=== PATIENT | male | born 1960 | race Caucasian/White ===

== ENCOUNTER 2017-07-22 00:19 | Emergency (ER) | payer SELFPAY ==
[2017-07-22 01:04] VITALS: BP 129/73; PULSE 90; RESP 18; TEMP 99.1; O2SAT 100
--- NOTE | 2017-07-22 01:06 | PD ---
HPI Chief Complaint: Psychiatric Symptoms Time Seen by Provider: 01:05 Travel History International Travel<30 days: No Contact w/Intl Traveler<30days: No Traveled to known affect area: No History of Present Illness HPI 56-year-old male presents to the emergency department under [place] [facility] for psychiatric evaluation. Patient was seen and evaluated at another facility and transferred here. His diagnosis is Warneke's encephalopathy. Patient is a poor historian. Does report injecting IV drugs. States that he feels "messed up." Patient sometimes seems to answer my questions appropriately, other times he seems delayed and confused. Reports that he has a right wrist abscess from injecting IV drugs. No other symptoms to report at this times. [facility] Past Medical History Medical History: Unable to Obtain Social History Alcohol Use: Yes Tobacco Use: Yes Substance Use: Yes Allergies-Medications (Allergen,Severity, Reaction): Coded Allergies: No Known Allergies (Unverified , 07/22/17) Review of Systems ROS Limitations: Poor Historian Except as stated in HPI: all other systems reviewed are Neg Physical Exam Exam Limitations: Poor Historian Narrative GENERAL: Well-nourished, well-developed male patient in no acute distress. SKIN: Focused skin assessment warm/dry. There is an indurated area in the right lateral wrist which measures about 2 cm in diameter. It is fluctuant but there is no pointing or drainage. There is a zone of inflammation around it but no lymphangitis. HEAD: Normocephalic. EYES: No scleral icterus. No injection or drainage. NECK: Supple, trachea midline. No JVD or lymphadenopathy. CARDIOVASCULAR: Regular rate and rhythm without murmurs, gallops, or rubs. RESPIRATORY: Breath sounds equal bilaterally. No accessory muscle use. GASTROINTESTINAL: Abdomen soft, non-tender, nondistended. MUSCULOSKELETAL: No cyanosis, or edema. BACK: Nontender without obvious deformity. No CVA tenderness. Data Data Last Documented VS Vital Signs Date Time Temp Pulse Resp B/P (MAP) Pulse Ox O2 Delivery O2 Flow Rate FiO2 07/22/17 01:04 99.1 90 18 129/73 (91) 100 Room Air Orders Orders Wound Culture And Gram Stain (07/22/17 01:16) Psych Screen (07/22/17 01:26) Sulfamet-Trimeth Ds 800-160 Mg (Bactrim (07/22/17 04:30) Cephalexin (Keflex) (07/22/17 04:30) Sulfamet-Trimeth Ds 800-160 Mg (Bactrim (07/22/17 21:00) Cephalexin (Keflex) (07/22/17 21:00) [facility] Medical Decision Making Medical Screen Exam Complete: Yes Emergency Medical Condition: Yes Medical Record Reviewed: Yes Differential Diagnosis Mood disorder versus personality disorder versus adjustment reaction disorder versus substance abuse Narrative Course 56-year-old male presents emergency department as a transfer [place]. His altered mental status was evaluated over the last 2 days at that facility. Patient appears without distress. Vital signs are stable. He does have an abscess on his right lateral wrist that is drained. He is started on oral antibiotics. Patient is medically cleared to undergo psychiatric screening for further evaluation and disposition. Mental health screening discussed with the patient. Psychiatric screen ordered. Procedures Procedure Narrative INCISION AND DRAINAGE OF ABSCESS: The area was prepped and was sterilely draped. Topical ethyl chloride was used to anesthetize the area. The area was properly anesthetized. A number 11 scalpel was used to make a [1-cm incision across the area of the abscess. Cultures were obtained. The abscess was drained an irrigated with normal saline. Sterile dressing applied. Patient advised to have packing removed in two days. Diagnosis Primary Impression: Psychosis Qualified Codes: F29 - Unspecified psychosis not due to a substance or known physiological condition Additional Impressions: Substance abuse Abscess Med/Other Pt SpecificInfo: Prescription(s) given Scripts Cephalexin (Keflex) 500 Mg Capsule 500 MG PO QID for Infection for 5 Days, CAP 0 Refills Prov: Salina Boyer 07/22/17 Sulfamethoxazole-Trimethoprim (Bactrim DS) 800-160 Mg Tab 1 TAB PO BID for Infection, #20 TAB 0 Refills Prov: Salina Boyer 07/22/17 Condition: Stable Salina Boyer Jul 22, 2017 01:06
[2017-07-22] MEDS ORDERED: CEPHALEXIN MONOHYDRATE 500 MG CAP PO ONE ×2 (04:30→21:00)
[2017-07-22] MEDS ORDERED: SULFAMETHOXAZOLE-TRIMETHOPRIM DS 800-160 MG TAB PO ONE ×2 (04:30→21:00)
[2017-07-22] MEDS ORDERED: CEPH-460 PO (06:04)
[2017-07-22] MEDS ORDERED: BACT800T5 PO (06:04)
[2017-07-22 06:20] VITALS: BP 137/73; PULSE 94; RESP 18; TEMP 98.6; O2SAT 99
--- NOTE | 2017-07-22 12:36 | PD.PSY.CON ---
Provisional Diagnosis Admission Date [place] I. Major neurocognitive disorder, severe, without behavioral disturbances [place] II. Deferred History of Present Illness Service Psychiatry Consult Requested By ER Reason for Consult [facility] Primary Care Physician Unknown HPI The patient is a 56-year-old -[place] man, as per EMR information he is domiciled in [place], no known psychiatric or medical history, who presents to the emergency department under [facility] for psychiatric evaluation. Patient was seen and evaluated at another facility and transferred here. His diagnosis is Warneke's encephalopathy. Patient is a poor historian. Does report injecting IV drugs in the past. States that he feels "messed up." Patient sometimes seems to answer my questions appropriately, other times he seems delayed and confused. Reports that he has a right wrist abscess from injecting IV drugs. The patient has severe dementia, is completely disoriented in time and place. He has persistent prominent confabulatory statements in order to answer questions. He denies depression, he denies anxiety, he denies psychosis. He denies suicidal and homicidal ideation, he denies visual and auditory hallucinations. During his stay in the agitation, no aggressive behavior has been reported. He has been mostly calm, cooperative, but completely detached from reality. Review of Systems Constitutional: DENIES: Diaphoretic episodes, Fatigue, Fever, Weight gain, Weight loss, Chills, Dizziness, Change in appetite, Night Sweats Endocrine: DENIES: Heat/cold intolerance, Polydipsia, Polyuria, Polyphagia Eyes: DENIES: Blurred vision, Diplopia, Eye inflammation, Eye pain, Vision loss , Photosensitivity, Double Vision Ears, nose, mouth, throat: DENIES: Tinnitus, Hearing loss, Vertigo, Nasal discharge, Oral lesions, Throat pain, Hoarseness, Ear Pain, Running Nose, Epistaxis, Sinus Pain, Toothache, Odynophagia Respiratory: DENIES: Apneas, Cough, Snoring, Wheezing, Hemoptysis, Sputum production, Shortness of breath Cardiovascular: DENIES: Chest pain, Palpitations, Syncope, Dyspnea on Exertion , PND, Lower Extremity Edema, Orthopnea, Claudication Gastrointestinal: DENIES: Abdominal pain, Black stools, Bloody stools, Constipation, Diarrhea, Nausea, Vomiting, Difficulty Swallowing, Anorexia Genitourinary: DENIES: Sexual dysfunction, Urinary frequency, Urinary incontinence, Urgency, Hematuria, Dysuria, Nocturia, Penile Discharge, Testicular Pain, Testicular Swelling Musculoskeletal: DENIES: Joint pain, Muscle aches, Stiffness, Joint Swelling, Back pain, Neck pain Integumentary: DENIES: Abnormal pigmentation, Nail changes, Pruritus, Rash Hematologic/lymphatic: DENIES: Bruising, Lymphadenopathy Immunologic/allergic: DENIES: Eczema, Urticaria Past Family Social History Coded Allergies: No Known Allergies (Unverified , 07/22/17) Active Scripts Cephalexin (Keflex) 500 Mg Capsule, 500 MG PO QID for Infection for 5 Days, CAP 0 Refills Prov:Salina Boyer 07/22/17 Sulfamethoxazole-Trimethoprim (Bactrim DS) 800-160 Mg Tab, 1 TAB PO BID for Infection, #20 TAB 0 Refills Prov:Salina Boyer 07/22/17 Current Medications Medications (Trade) Dose Ordered Sig/William Route Start Time Stop Time Status Last Admin (Bactrim Ds 800-160 Mg) 1 tab ONCE ONCE PO 07/22/17 21:00 07/22/17 21:01 (Keflex) 500 mg ONCE ONCE PO 07/22/17 21:00 07/22/17 21:01 Physical Exam Vital Signs Vital Signs Date Time Temp Pulse Resp B/P (MAP) Pulse Ox O2 Delivery O2 Flow Rate FiO2 07/22/17 06:20 98.6 94 18 137/73 (94) 99 Room Air Lab Results Date/Time Source Procedure Growth Status 07/22/17 02:07 Wound Arm Gram Stain - Final Resulted 07/22/17 02:07 Wound Arm Wound Culture Pending Resulted Mental Status Examination Appearance: Appropriate Consciousness: Alert Orientation: Person Motor Activity: Abnormal gait Speech: Unremarkable Language: Adequate Fund of Knowledge: Inadequate Attention and Concentration: Adequate Memory: Impaired Mood: Appropriate Affect: Appropriate Thought Process & Associations: Loose associations, Disorganized Thought Content: Bizarre thinking Hallucination Type: None Delusion Type: None Suicidal Ideation: No Suicidal Plan: No Suicidal Intention: No Homicidal Ideation: No Homicidal Plan: No Homicidal Intention: No Insight: Fair Judgment: Impulsive Assessment & Plan Problem List: (1) Dementia without behavioral disturbance ICD Codes: F03.90 - Unspecified dementia without behavioral disturbance Assessment & Plan: Patient is diffusely confused, just oriented to person, disoriented in time and place. Uses persistent confabulation to answer questions. He denies depression, he denies anxiety, he denies edgar and psychosis. He denies suicidal or homicidal ideation, he denies visual and auditory hallucinations. No agitation, no aggressive behavior observed. Patient definitely has severe dementia. Does not have any neuropsychiatric symptoms require psychiatric admission at this moment. Patient does not meet criteria for involuntary psychiatric admission. He will slowly need to be transferred to permanent [facility] housing. He will be transferred back to the hospital he came from. Assessment & Plan Estimated LOS: days Miky Wolff MD Jul 22, 2017 12:36
--- NOTE | 2017-07-22 13:13 | PD ---
Physical Exam Date Seen by Provider: Jul 22, 2017 Time Seen by Provider: 13:11 Narrative 56-year-old male with history of Wernicke syndrome, was transferred here from another hospital for psychiatric evaluation. Patient was medically cleared after I&D of abscess performed secondary to recent IV drug use. Patient was seen by the psychiatrist and felt to be psychiatrically stable and not appropriate for psychiatric evaluation. Patient is continued on Bactrim and Keflex for cellulitis secondary to abscess. Patient is felt appropriate for transfer back to the hospital from which he came from for further treatment for his Warnicke syndrome and cellulitis. Data Data Last Documented VS Vital Signs Date Time Temp Pulse Resp B/P (MAP) Pulse Ox O2 Delivery O2 Flow Rate FiO2 07/22/17 06:20 98.6 94 18 137/73 (94) 99 Room Air Orders Orders Wound Culture And Gram Stain (07/22/17 01:16) Psych Screen (07/22/17 01:26) Sulfamet-Trimeth Ds 800-160 Mg (Bactrim (07/22/17 04:30) Cephalexin (Keflex) (07/22/17 04:30) Sulfamet-Trimeth Ds 800-160 Mg (Bactrim (07/22/17 21:00) Cephalexin (Keflex) (07/22/17 21:00) Diet Regular Basic (07/22/17 Breakfast) Diet Regular Basic (07/22/17 Lunch) MDM Medical Record Reviewed: Yes Supervised Visit with DELMI: Yes Narrative Course 56-year-old male with history of Wernicke syndrome, was transferred here from another hospital for psychiatric evaluation. Patient was medically cleared after I&D of abscess performed secondary to recent IV drug use. Patient was seen by the psychiatrist and felt to be psychiatrically stable and not appropriate for psychiatric evaluation. Patient is continued on Bactrim and Keflex for cellulitis secondary to abscess. Patient is felt appropriate for transfer back to the hospital from which he came from for further treatment for his Warnicke syndrome and cellulitis. Diagnosis Primary Impression: Psychosis Qualified Codes: F29 - Unspecified psychosis not due to a substance or known physiological condition Additional Impressions: Substance abuse Abscess Patient Instructions: Abscess Incision and Drainage (DC), General Instructions Med/Other Pt SpecificInfo: Prescription(s) given Scripts Cephalexin (Keflex) 500 Mg Capsule 500 MG PO QID for Infection for 5 Days, CAP 0 Refills Prov: Salina Boyer 07/22/17 Sulfamethoxazole-Trimethoprim (Bactrim DS) 800-160 Mg Tab 1 TAB PO BID for Infection, #20 TAB 0 Refills Prov: Salina Boyer 07/22/17 Disposition: 70 TRANSFER TO OTHER FACILITY Condition: Balwinder Kaufman Jul 22, 2017 13:13
== END 2017-07-22 17:06 | disposition short-term general hospital (02) ==
LOC: NEPJ 00:19
DX: F29 Unspecified psychosis not due to a substance or known physiological condition (principal); F19.10 Other psychoactive substance abuse, uncomplicated; A49.01 Methicillin susceptible Staphylococcus aureus infection, unspecified site; E51.2 Wernicke's encephalopathy; L02.413 Cutaneous abscess of right upper limb; Z72.0 Tobacco use
CPT/HCPCS: 10061; 86403; 87070; 87185; 87186